=== PATIENT | female | born 1960 | race Caucasian/White ===

== ENCOUNTER 2018-08-14 07:57 | Emergency (ER) | payer OTHER ==
[~2018-08-14] VITALS: Ht 170.2 cm; Wt 63.5 kg
[2018-08-14] MEDS ORDERED: HYDROXYZINE HCL25 M2 PO (08:57)
[2018-08-14] MEDS ORDERED: BACTROBAN CREAM30 G1 TOP (08:57)
[2018-08-14] MEDS ORDERED: PREDNISONE 20 M20 MG PO (08:57)
[2018-08-14 09:20] VITALS: BP 167/82
== END 2018-08-14 09:21 | disposition home or self-care (01) ==
LOC: ER 07:57
DX: L40.9 Psoriasis, unspecified (principal); L08.89 Other specified local infections of the skin and subcutaneous tissue; F17.210 Nicotine dependence, cigarettes, uncomplicated